=== PATIENT | male | born 1950 ===

== ENCOUNTER 2016-12-22 09:06 | Emergency (ER) | payer SELFPAY ==
[2016-12-22 09:22] VITALS: BP 158/90; PULSE 51; RESP 20; TEMP 98.2; O2SAT 98; BMI 21.8
--- NOTE | 2016-12-22 09:48 | C.PDOC ---
History Of Present Illness 66 yo male come in accompanied by family for evaluation of Left shoulder pain for 15 days. As per pt, pain is localized over superior aspect Left shoulder, non-radiating and worse with movement. Otherwise, pt and family denies recent known trauma or injury, fever, chills, headache, dizziness, CP, SOB, dyspnea, palpitation, diaphoresis, denies weakness, sensory or vascular deficits to left hand. Ambulate to Ed for evaluation, not in any apparent distress. Time Seen by Provider: 12/22/16 09:24 Chief Complaint (Nursing): Upper Extremity Problem/Injury History Per: Patient, Family History/Exam Limitations: no limitations Onset/Duration Of Symptoms: Days (15) Current Symptoms Are (Timing): Still Present Past Medical History Reviewed: Historical Data, Nursing Documentation, Vital Signs Vital Signs: Last Vital Signs Temp 98.2 F 12/22/16 09:22 Pulse 51 L 12/22/16 09:22 Resp 20 12/22/16 09:22 BP 158/90 H 12/22/16 09:22 Pulse Ox 98 12/22/16 10:11 - Medical History PMH: HTN Family History: States: No Known Family Hx - Social History Hx Alcohol Use: No Hx Substance Use: No - Immunization History Hx Tetanus Toxoid Vaccination: No Hx Influenza Vaccination: No Hx Pneumococcal Vaccination: No Review Of Systems Except As Marked, All Systems Reviewed And Found Negative. Constitutional: Negative for: Fever, Chills Cardiovascular: Negative for: Chest Pain, Palpitations Respiratory: Negative for: Shortness of Breath Musculoskeletal: Positive for: Shoulder Pain (Left shoulder ). Negative for: Hand Pain Neurological: Negative for: Weakness, Headache, Dizziness Physical Exam - Physical Exam Appears: Well, Non-toxic, No Acute Distress Skin: Normal Color, Warm, No Rash, No Ecchymosis Head: Normacephalic Throat: No Erythema, No Exudate, No Drooling Neck: Supple, Other ((-) carotid bruits) Chest: Symmetrical Cardiovascular: Rhythm Regular, No Friction Rub, No Murmur, No JVD Respiratory: No Decreased Breath Sounds, No Accessory Muscle Use, No Stridor, No Wheezing Extremity: Normal ROM (LUE), Tenderness (mild tenderness over superior aspect left shoulder with mild discomfort to left shoulder abduction. NO palpable deformity, no skin changes, no neurovascular deficits.), No Pedal Edema, Capillary Refill (less than 2sec to left hand), No Deformity, No Swelling Neurological/Psych: Oriented x3, Normal Speech, Normal Motor, Normal Sensation, Normal Reflexes ED Course And Treatment ECG: Interpreted By Me, Viewed By Me (and ED attending) ECG Rhythm: Sinus Rhythm (@51/min) Interpretation Of ECG: Sinus latisha@51/min, NAD, normal interval, no acute T wave or ST-T changes. Rate From EC (BPM) O2 Sat by Pulse Oximetry: 98 (RA ) Pulse Ox Interpretation: Normal - Other Rad X-Ray - Left Shoulder X-Ray: Viewed By Me Interpretation: mild DJD, no acute fx or dislocation Progress Note: On re-eval, pt is afebrile, hemodynamicaly stable. Non-toxic. PulsEOx 100% RA. neck: Supple, (-) carotid bruits. Lungs: CTA B/L, BS equal B/ L. CVS: (+)S1S2, reg. Left shoulder: exam c/w mild arthralgia. FAROM, no deformity, no skin changes. left shoulder xray: (-) acute abn, EKG review - normal study.Sling applied to left arm. Pt has clinical findings c/w left shoulder arthralgia. Pt advised. re.f to f/u with PMD, ortho in 2-3 days for re-evaluation. return to Ed if any worsening or new changes. Medical Decision Making Medical Decision Making: PLAN: * X-Ray - Left Shoulder * EKG * Tramadol PO Disposition Counseled Patient/Family Regarding: Diagnosis, Need For Followup, Rx Given - Disposition Referrals: [facility] [Outside] [facility] [Outside] [facility] [Outside] [facility] [Outside] Disposition: HOME/ ROUTINE Disposition Time: 10:20 Condition: STABLE Additional Instructions: Sling to left arm for 1-2 weeks light duty to left arm for 1-2 weeks take medication as prescribed Follow up with PMD, Orthopedist in 2-3 days for re-evaluation. Return to ED if any worsening or new changes. Prescriptions: Famotidine [Pepcid] 20 mg PO BID #20 tab Ibuprofen [Motrin Tab] 600 mg PO TID #20 tab traMADol [Ultram] 50 mg PO TID #10 tab Instructions: Shoulder Pain (ED) Forms: [employer] (Slovenian) Print Language: CHADIAN - Clinical Impression Clinical Impression: Shoulder arthralgia - PA / CONSOLE MANAGER / Resident Statement MD/DO has reviewed & agrees with the documentation as recorded. - Scribe Statement The provider has reviewed the documentation as recorded by the Scribe Melissa Parish All medical record entries made by the Saniaibarlen were at my direction and personally dictated by me. I have reviewed the chart and agree that the record accurately reflects my personal performance of the history, physical exam, medical decision making, and the department course for this patient. I have also personally directed, reviewed, and agree with the discharge instructions and disposition.
--- NOTE | 2016-12-22 12:47 | RAD ---
PROCEDURE: Radiographs of the Left Shoulder HISTORY: Pain. No history of recent/ related trauma provided COMPARISON: No prior. FINDINGS: BONES: Normal. No fracture. JOINTS: Normal. Glenohumeral and acromioclavicular joints preserved. No osteoarthritis. SOFT TISSUES: Normal. OTHER FINDINGS: None. IMPRESSION: No significant or acute findings to account for/ related to the clinical presentation. No preliminary report provided by emergency department personnel.
--- NOTE | 2016-12-23 20:54 | CARD ---
APPROVED REPORT EKG Measurement Heart [id number] ID [id number] <Conclusion> Sinus bradycardia Otherwise normal ECG
== END 2016-12-22 10:45 | disposition home or self-care (01) ==
LOC: C.ER 09:06
DX: M25.512 Pain in left shoulder (principal)

== ENCOUNTER 2017-01-23 20:32 | Emergency (ER) | payer OTHER ==
[2017-01-23 20:32] VITALS: BMI 22.1
[2017-01-23 20:49] VITALS: TEMP 98.7
[2017-01-23 22:03] VITALS: RESP 16
--- NOTE | 2017-01-23 23:04 | C.PDOC ---
History Of Present Illness Pt c/o left shoulder area pain. Denies trauma. Time Seen by Provider: 01/23/17 21:28 Chief Complaint (Nursing): Upper Extremity Problem/Injury History Per: Patient, Family Onset/Duration Of Symptoms: Days (about 1 week) Current Symptoms Are (Timing): Still Present Quality: "Pain" Severity: Moderate Exacerbating Factor(s): Strenuous Use Of Affected Area, Movement Additional History Per: Prior Records Past Medical History Reviewed: Historical Data, Nursing Documentation, Vital Signs Vital Signs: Last Vital Signs Temp 98.7 F 01/23/17 20:48 Pulse 86 01/23/17 22:01 Resp 16 01/23/17 22:01 BP 125/79 01/23/17 22:01 Pulse Ox 96 01/23/17 22:01 - Medical History PMH: HTN Surgical History: No Surg Hx Family History: States: Unknown Family Hx - Social History Hx Alcohol Use: No Hx Substance Use: No - Immunization History Hx Tetanus Toxoid Vaccination: No Hx Influenza Vaccination: No Hx Pneumococcal Vaccination: No Review Of Systems Except As Marked, All Systems Reviewed And Found Negative. Constitutional: Negative for: Fever, Weakness Cardiovascular: Negative for: Chest Pain Respiratory: Negative for: Shortness of Breath, Hemoptysis Gastrointestinal: Negative for: Nausea, Vomiting, Abdominal Pain Musculoskeletal: Positive for: Neck Pain. Negative for: Back Pain Skin: Negative for: Rash Neurological: Negative for: Weakness, Numbness, Incoordination, Change in Speech , Confusion, Seizures, Altered Mental Status, Headache, Dizziness Physical Exam - Physical Exam Appears: Non-toxic, No Acute Distress Skin: Normal Color, Warm, Dry, No Rash Head: Atraumatic, Normacephalic Eye(s): bilateral: PERRL, EOMI Neck: Normal ROM, No Midline Cervical Tenderness, Paracervical Tenderness, No Step Off Deformity, Supple Chest: Symmetrical, No Deformity, No Tenderness Cardiovascular: Rhythm Regular Respiratory: Normal Breath Sounds, No Accessory Muscle Use Gastrointestinal/Abdominal: Soft, No Tenderness Back: No CVA Tenderness, No Vertebral Tenderness Extremity: Tenderness (mild, left shoulder), Capillary Refill (wnl), No Deformity, No Swelling Extremity: Bilateral: Normal Color And Temperature Pulses: Left Radial: Normal Neurological/Psych: Oriented x3, Normal Motor, Normal Sensation ED Course And Treatment ECG: Interpreted By Me, Viewed By Me ECG Rhythm: Sinus Rhythm ECG Interpretation: No Acute Changes Rate From EC O2 Sat by Pulse Oximetry: 96 Pulse Ox Interpretation: Normal Reassessment Condition: Improved Disposition Counseled Patient/Family Regarding: Studies Performed, Diagnosis, Need For Followup, Rx Given - Disposition Referrals: Deborah Florentino MD [Primary Care Provider] - Disposition: HOME/ ROUTINE Disposition Time: 23:05 Condition: IMPROVED Additional Instructions: Follow up with your doctor for further evaluation and treatment. Return to the ER if you develop weakness, numbness, chest pain, shortness of breath, worsening of symptoms or if you have any other concerns. Prescriptions: traMADol/Acetaminophen [Ultracet 325 MG-37.5 MG] 1 tab PO Q4 PRN #30 tab PRN Reason: Pain Instructions: Shoulder Pain (ED) Forms: [email or web address] (Beninese) Print Language: AZERI - Clinical Impression Clinical Impression: Left shoulder pain, Posterior neck pain
[2017-01-23 23:20] VITALS: BP 101/59; PULSE 79; O2SAT 100
--- NOTE | 2017-01-26 10:23 | CARD ---
APPROVED REPORT EKG Measurement Heart [id number] <Conclusion> Normal sinus rhythm Normal ECG
== END 2017-01-23 23:20 | disposition home or self-care (01) ==
LOC: SUPCPDRO 20:32 → C.ER 20:32
DX: M25.512 Pain in left shoulder (principal); M54.2 Cervicalgia
CPT/HCPCS: 84484; 93005; 96374; 99284; J1885

== ENCOUNTER 2018-08-05 20:06 | Emergency (ER) | payer OTHER ==
[2018-08-05 20:07] VITALS: BMI 22.1
[2018-08-05] MEDS ORDERED: Iohexol 240 (50 ml) PO STA (20:59)
[2018-08-05 21:19] LABS: BASO # 0.1 K/uL (0.0-0.2); BASO % 1.3 % (0.0-2.0); EOS # 0.4 K/uL (0.0-0.7); EOS % 6.5 % (0.0-4.0); HEMOGLOBIN 13.3 g/dL (12.0-18.0); LYMPH # 2.1 K/uL (1.0-4.3); LYMPH % 31.4 % (20.0-40.0); MEAN CELL VOLUME 89.7 fL (80.0-94.0); MEAN CORPUSCULAR HEMOGLOBIN 30.3 pg (27.0-31.0); MEAN CORPUSCULAR HGB CONC 33.7 g/dL (33.0-37.0); MEAN PLATELET VOLUME 7.4 fL (7.2-11.7); MONO # 0.6 K/uL (0.0-0.8); MONO % 8.9 % (0.0-10.0); NEUT # 3.5 K/uL (1.8-7.0); NEUT % 51.9 % (50.0-75.0); RBC 4.41 Mil/uL (4.40-5.90); RED CELL DISTRIBUTION WIDTH 14.5 % (11.5-14.5); WHITE BLOOD COUNT 6.8 K/uL (4.8-10.8)
[2018-08-05] MEDS ORDERED: Iohexol 240 (50 ml) ONE (21:21)
[2018-08-05 21:25] LABS: SQUAMOUS EPITHIAL < 1 /hpf (0-5); URINE BILIRUBIN NEGATIVE (NEGATIVE); URINE BLOOD NEGATIVE (NEGATIVE); URINE CLARITY Clear (Clear); URINE COLOR Yellow (YELLOW); URINE GLUCOSE (UA) NORMAL (Normal); URINE LEUKOCYTE ESTERASE NEG Leu/uL (Negative); URINE PROTEIN NEGATIVE (NEGATIVE); URINE UROBILINOGEN NORMAL mg/dL (0.2-1.0)
[2018-08-05 21:27] LABS: VENOUS BLOOD GAS BASE EXCESS 1.9 mmol/L (0.0-2.0); VENOUS BLOOD GAS PCO2 50 mmHg (40-60); VENOUS BLOOD GAS PO2 35 mm/Hg (30-55); VENOUS BLOOD PH 7.36 (7.32-7.43)
[2018-08-05 21:34] LABS: ALB/GLOB RATIO 1.5 (1.0-2.1); ALBUMIN 4.1 g/dL (3.5-5.0); ALT/SGPT 24 U/L (21-72); AST/SGOT 36 U/L (17-59); BLOOD UREA NITROGEN 27 mg/dL (9-20); CALCIUM 9.3 mg/dl (8.6-10.4); GFR NON-AFRICAN AMERICAN 55; LIPASE 182 U/L (23-300)
[2018-08-05] MEDS ORDERED: Iodixanol 320 MG/ML 100 ML BOTTLE IV ONE (22:13)
--- NOTE | 2018-08-05 23:21 | C.PDOC ---
History Of Present Illness 68 year old male presents to the ED c/o LUQ pain and bulging mass in the area. Patient noticed that today when going from sitting top standing he felt sudden pain in the area. Patient reports he never had pain or the bulge before. Patient denies fever, chills, nausea, vomit, diarrhea, rash, back pain. Time Seen by Provider: 08/05/18 20:18 Chief Complaint (Nursing): Abdominal Pain History Per: Patient History/Exam Limitations: no limitations Onset/Duration Of Symptoms: Hrs Current Symptoms Are (Timing): Still Present Location Of Pain/Discomfort: LUQ Radiation Of Pain To:: None Quality Of Discomfort: "Pain" Associated Symptoms: denies: Nausea, Vomiting, Diarrhea, Urinary Symptoms Exacerbating Factors: Upright Position Recent travel outside of the [place]: No Additional History Per: Patient Past Medical History Reviewed: Historical Data, Nursing Documentation, Vital Signs Vital Signs: Last Vital Signs Temp 97.6 F 08/05/18 20:21 Pulse 65 08/05/18 20:21 Resp 20 08/05/18 20:21 BP 128/76 08/05/18 20:21 Pulse Ox 97 08/05/18 20:21 - Medical History PMH: HTN Denies: Chronic Kidney Disease Surgical History: No Surg Hx Family History: States: Unknown Family Hx - Social History Hx Alcohol Use: No Hx Substance Use: No - Immunization History Hx Tetanus Toxoid Vaccination: No Hx Influenza Vaccination: No Hx Pneumococcal Vaccination: No Review Of Systems Constitutional: Negative for: Fever, Chills Cardiovascular: Negative for: Chest Pain Respiratory: Negative for: Shortness of Breath Gastrointestinal: Positive for: Abdominal Pain. Negative for: Nausea, Vomiting Musculoskeletal: Negative for: Back Pain Skin: Negative for: Rash Neurological: Negative for: Weakness, Numbness Physical Exam - Physical Exam Appears: Non-toxic, No Acute Distress Skin: Normal Color, Warm, Dry Head: Atraumatic, Normacephalic Eye(s): bilateral: Normal Inspection Oral Mucosa: Moist Neck: Normal ROM, Supple Chest: Symmetrical Cardiovascular: Rhythm Regular Respiratory: Normal Breath Sounds, No Rales, No Rhonchi, No Wheezing Gastrointestinal/Abdominal: Soft, Tenderness (LUQ), No Guarding, No Rebound, Hernia (reducible hernia, tender to palpation), Other (Negative McBurney's and [place]) Back: No CVA Tenderness Extremity: Normal ROM, No Tenderness, No Swelling Neurological/Psych: Oriented x3, Normal Speech, Normal Cognition Gait: Steady ED Course And Treatment - Laboratory Results Result Diagrams: 08/05/18 21:12 08/05/18 21:12 Lab Results: pO2 35 mm/Hg (30-55) 08/05/18 21:24 VBG pH 7.36 (7.32-7.43) 08/05/18 21:24 VBG pCO2 50 mmHg (40-60) 08/05/18 21:24 VBG HCO3 25.5 mmol/L 08/05/18 21:24 VBG Total CO2 29.7 mmol/L (22-28) H 08/05/18 21:24 VBG O2 Sat (Calc) 68.0 % (40-65) H 08/05/18 21:24 VBG Base Excess 1.9 mmol/L (0.0-2.0) 08/05/18 21:24 VBG Potassium 4.2 mmol/L (3.6-5.2) 08/05/18 21:24 Sodium 139.0 mmol/l (132-148) 08/05/18 21:24 Chloride 105.0 mmol/L (98-107) 08/05/18 21:24 Glucose 117 mg/dl (75-110) H 08/05/18 21:24 Lactate 1.3 mmol/L (0.7-2.1) 08/05/18 21:24 Total Bilirubin 0.6 mg/dL (0.2-1.3) 08/05/18 21:12 AST 36 U/L (17-59) 08/05/18 21:12 ALT 24 U/L (21-72) 08/05/18 21:12 Alkaline Phosphatase 105 U/L (38-126) 08/05/18 21:12 Total Protein 6.9 g/dL (6.3-8.3) 08/05/18 21:12 Albumin 4.1 g/dL (3.5-5.0) 08/05/18 21:12 Globulin 2.7 gm/dL (2.2-3.9) 08/05/18 21:12 Albumin/Globulin Ratio 1.5 (1.0-2.1) 08/05/18 21:12 Lipase 182 U/L (23-300) 08/05/18 21:12 Urine Color Yellow (YELLOW) 08/05/18 21:12 Urine Clarity Clear (Clear) 08/05/18 21:12 Urine pH 5.0 (5.0-8.0) 08/05/18 21:12 Ur Specific [place] 1.013 (1.003-1.030) 08/05/18 21:12 Urine Protein Negative mg/dL (NEGATIVE) 08/05/18 21:12 Urine Glucose (UA) Normal mg/dL (Normal) 08/05/18 21:12 Urine Ketones Negative mg/dL (NEGATIVE) 08/05/18 21:12 Urine Blood Negative (NEGATIVE) 08/05/18 21:12 Urine Nitrate Negative (NEGATIVE) 08/05/18 21:12 Urine Bilirubin Negative (NEGATIVE) 08/05/18 21:12 Urine Urobilinogen Normal mg/dL (0.2-1.0) 08/05/18 21:12 Ur Leukocyte Esterase Neg [place]/uL (Negative) 08/05/18 21:12 Urine WBC (Auto) < 1 /hpf (0-5) 08/05/18 21:12 Urine RBC (Auto) 1 /hpf (0-3) 08/05/18 21:12 Ur Squamous Epith Cells < 1 /hpf (0-5) 08/05/18 21:12 O2 Sat by Pulse Oximetry: 97 (ON RA) Pulse Ox Interpretation: Normal - CT Scan/US CT abd/pelvis Other Rad Studies (CT/US): Read By Radiologist, Radiology Report Reviewed CT/US Interpretation: EXAM: CT Abdomen and Pelvis with IV contrast. CLINICAL HISTORY: 1 day of pain and swelling LUQ region/mid [address] over area. No nausea or vomiting. TECHNIQUE: Axial computed tomography images of the abdomen and pelvis with intravenous contrast. 0.00 mGy-cm. CONTRAST: With; OMNI 240 & VISI 320 100MLS. COMPARISON: None provided. FINDINGS: LUNG BASES: Mild atelectasis near the lung bases. The visualized heart is mildly to moderately enlarged. Calcified granuloma at the right lung base. LIVER: Unrem arkable. GALLBLADDER AND BILE DUCTS: The gallbladder appears within normal limits. No radioopaque gallstones are seen. No biliary ductal dilatation is evident. PANCREAS: The pancreatic duct is borderline prominent near the pancreatic head. Please correlate clinically and if indicated this could be further evaluated with MRCP or ERCP. SPLEEN: Unremarkable. ADRENAL GLANDS: Unremarkable. KIDNEYS, URETERS, AND BLADDER: The kidneys appear within normal limits. There is no hydronephrosis or hydroureter. No urinary calculi are seen. STOMACH AND BOWEL: There is constipation in the colon, including in the left upper quadrant at the area marked by the bbs. No evidence for bowel obstruction or inflammation identified. APPENDIX: No evidence for appendicitis. PERITONEUM: No ascites or pneumoperitoneum. LYMPH NODES: There are some borderline size retroperitoneal nodes without madison lymphadenopathy. REPRODUCTIVE: Prostate is enlarged measuring 4.8 cm transverse. VASCULATURE: The abdominal aorta is moderately atherosclerotic. Additionally, there is mild infrarenal abdominal aortic aneurysm measuring 2.7 x 3.0 cm near series 2, image 42. Mild prominence of the left common iliac artery measuring up to 1.6 cm. BONES: Mild to moderate multilevel degenerative spine changes. IMPRESSION: 1. The visualized heart is mildly to moderately enlarged. 2. The pancreatic duct is borderline prominent near the pancreatic head. Please correlate clinically and if indicated this could be further evaluated with MRCP or ERCP. 3. There is constipation in the colon, including in the left upper quadrant at the area marked by the bbs. 4. No evidence for bowel obstruction or inflammation identified. 5. The abdominal aorta is moderately atherosclerotic. Additionally, there is mild infrarenal abdominal aortic aneurysm measuring 2.7 x 3.0 cm near series 2, image 42. 6. There are some borderline size retroperitoneal nodes without mad[place] lymphadenopathy. 7. Prostate is enlarged measuring 4.8 cm transverse. 8. Additional and incidental findings as described. . Electronically signed on Aug 06, 2018 12:58:02 AM EDT by: Kristen Sánchez M.D., Certified by ABR, MSK, Neuroradiology. Progress Note: Plan: - VBG. - CT abd/pelvis. - Labs. - UA Disposition Counseled Patient/Family Regarding: Studies Performed, Diagnosis, Need For Followup, Rx Given - Disposition Referrals: Tian Zhao MD [Staff Provider] - Jamir Romo Jr., MD [Staff Provider] - Disposition: HOME/ ROUTINE Disposition Time: 01:00 Condition: STABLE Additional Instructions: FOLLOW UP WITH GENERAL SURGEON WITHIN 1 WEEK AND WITH VASCULAR SURGEON WITHIN 1 WEEK USE MEDICATION DAILY INCREASE FIBER IN YOUR DIET RETURN TO EMERGENCY ROOM IF YOUR SYMPTOMS BECOME WORSE SEGUIRSE CON EL CIRUJANO GENERAL EN VINCENZO SEMANA Y CON EL CIRUJANO VASCULAR EN VINCENZO SEMANA USAR MEDICAMENTOS DIARIAMENTE AUMENTA LA FIBRA EN TU DIETA VUELVA A LA JEN DE EMERGENCIA SI LA SNTOMAS SE HACEN PEOR Prescriptions: Docusate [Colace] 100 mg PO DAILY #30 cap Instructions: Abdominal Aortic Aneurysm, Abdominal Hernia (DC) Forms: Dr. Z (French) - Clinical Impression Clinical Impression: Constipation, Aneurysm of infrarenal abdominal aorta, Abdominal hernia - Scribe Statement The provider has reviewed the documentation as recorded by the Scribe Darrius Garza All medical record entries made by the Scribe were at my direction and personal ly dictated by me. I have reviewed the chart and agree that the record accurately reflects my personal performance of the history, physical exam, medical decision making, and the department course for this patient. I have also personally directed, reviewed, and agree with the discharge instructions and disposition.
[2018-08-06 01:25] VITALS: BP 135/79; PULSE 99; RESP 19; TEMP 98.4; O2SAT 95
--- NOTE | 2018-08-06 09:36 | CT ---
Date of service: 08/05/2018 PROCEDURE: CT Abdomen and Pelvis with contrast HISTORY: LUQ PAIN, HERNIA, R/O INCARCERATION COMPARISON: None available. TECHNIQUE: CT scan of the abdomen and pelvis was performed after administration of intravenous contrast. Oral contrast was administered. Coronal and sagittal reformatted images were obtained. Contrast dose: 100 mL Visipaque 320 Radiation dose: Total exam DLP = 275.68 mGy-cm. This CT exam was performed using one or more of the following dose reduction techniques: Automated exposure control, adjustment of the mA and/or kV according to patient size, and/or use of iterative reconstruction technique. FINDINGS: LOWER THORAX: There are multiple scattered calcified nodules in the visualized lungs, the largest in the right anterior lateral lung base measures 6 mm. LIVER: Normal in size with homogeneous enhancement. No gross lesion or ductal dilatation. GALLBLADDER AND BILE DUCTS: Well distended. No calcified gallstones, wall thickening or pericholecystic fluid. PANCREAS: Normal in size with homogeneous enhancement. No gross lesion or ductal dilatation. SPLEEN: Normal in size and appearance. There is a tiny nonspecific calcification in the posterior spleen. ADRENALS: No discrete nodule. KIDNEYS AND URETERS: Normal in size with homogeneous enhancement. No hydronephrosis. No solid mass. VASCULATURE: There is ectasia of the infrarenal aorta and aortic calcifications with mild mural plaques. Both common iliac arteries are tortuous. BOWEL: The small bowel loops are normal in caliber. There is large amount of stool in the colon. There is gaseous distension of redundant sigmoid colon. No bowel wall thickening or obstruction. APPENDIX: Normal appendix. PERITONEUM: No free fluid. No free air. LYMPH NODES: No enlarged lymph nodes. BLADDER: Well distended and normal in appearance. REPRODUCTIVE: There is mild enlargement of the prostate gland. BONES: No acute fracture. Multilevel degenerative disc disease with vacuum discs in the lower lumbar spine. OTHER FINDINGS: None. IMPRESSION: No acute abdominal or pelvic abnormality. Constipation. No evidence for bowel obstruction. Mild enlargement of the prostate gland. Please correlate with PSA levels. A preliminary report was provided by [employer].
== END 2018-08-06 01:26 | disposition home or self-care (01) ==
LOC: C.ER 20:06
DX: K59.00 Constipation, unspecified (principal); I71.4 Abdominal aortic aneurysm, without rupture; K46.9 Unspecified abdominal hernia without obstruction or gangrene
CPT/HCPCS: 74177; 80053; 81001; 82803; 83690; 85025; 99284; Q9966; Q9967

== ENCOUNTER 2018-08-17 13:24 | Emergency (ER) | payer OTHER ==
[2018-08-17 13:24] VITALS: BMI 22.1
[2018-08-17 13:40] VITALS: BP 126/72; PULSE 70; RESP 20; TEMP 98.1; O2SAT 100
--- NOTE | 2018-08-17 15:50 | C.PDOC ---
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 Patient states that he tripped and fell. Patient denies weakness and numbness. Time Seen by Provider: 08/17/18 13:47 Chief Complaint (Nursing): Lower Extremity Problem/Injury History Per: Patient History/Exam Limitations: no limitations Onset/Duration Of Symptoms: Hrs (1) Current Symptoms Are (Timing): Still Present - Ankle/Foot Description Of Injury: Fell Past Medical History Reviewed: Historical Data, Nursing Documentation, Vital Signs Vital Signs: Last Vital Signs Temp 98.1 F 08/17/18 13:35 Pulse 70 08/17/18 13:35 Resp 20 08/17/18 13:35 BP 126/72 08/17/18 13:35 Pulse Ox 100 08/17/18 13:35 - Medical History PMH: HTN Denies: Chronic Kidney Disease Surgical History: No Surg Hx Family History: States: Unknown Family Hx - Social History Hx Alcohol Use: No Hx Substance Use: No - Immunization History Hx Tetanus Toxoid Vaccination: No Hx Influenza Vaccination: No Hx Pneumococcal Vaccination: No Review Of Systems Constitutional: Negative for: Fever, Chills, Weakness Musculoskeletal: Positive for: Leg Pain (left knee pain ) Neurological: Negative for: Weakness, Numbness Physical Exam - Physical Exam Appears: Well, Non-toxic, No Acute Distress Skin: Normal Color, Warm, Dry Head: Atraumatic, Normacephalic Neck: Normal ROM, Supple Chest: Symmetrical, No Deformity Cardiovascular: Rhythm Regular, No Murmur Respiratory: No Accessory Muscle Use, No Rales, No Rhonchi, No Wheezing Gastrointestinal/Abdominal: Soft, No Tenderness Extremity: No Normal ROM (decreased ROM secondary to pain), No Deformity, Swelling (lateral side of the right knee) Pulses: Left Dorsalis Pedis: Normal, Right Dorsalis Pedis: Normal Neurological/Psych: Oriented x3, Normal Speech, Normal Cognition ED Course And Treatment O2 Sat by Pulse Oximetry: 100 (in RA) - Other Rad Right Knee X-ray X-Ray: Interpreted by Me, Viewed By Me Interpretation: Accession No. : [id number]. Patient Name / ID : MEGAN BROWN / [id number]. Exam Date : 08/17/2018 13:52:29 ( Approved ). Study Comment : Sex / Age : M / 68Y. Creator : Dimitri Flor MD. Dictator : Dimitri Flor MD. Bill Recapitulation Clerk : Analytics Director : Dimitri Flor MD. Approver2 : Report Date : 08/17/2018 17:27:27. My Comment : . Date of service: 08/17/2018. PROCEDURE: Right Knee Radiographs. HISTORY: fall. COMPARISON: None. TECHNIQUE: 2 views obtained. FINDINGS: BONES: Normal. No fracture. JOINTS: Normal. No osteoarthritis. JOINT EFFUSION: None. OTHER FINDINGS: None. IMPRESSION: No acute findings related to/ accounting for the clinical presentation. Progress Note: Right knee x-ray ordered for patient. Patient given Motrin PO. Knee immobilizer applied. Patient given a walker and training with PT. Re- evaluation. Patient feels better. Discussed results and plan with patient who expresses understanding. All questions answered and there is agreement with the plan to discharge home with instructions. Patient stable for discharge. Return if symptoms persist or worsen. Disposition - Disposition Referrals: Alfred Philip MD [Staff Provider] - Disposition: HOME/ ROUTINE Disposition Time: 15:47 Condition: STABLE Additional Instructions: Follow up with PMD and Orthopedist within 1-2 days. Return to ED if feel worse. 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 (Joselin Feliz) - Scribe Statement The provider has reviewed the documentation as recorded by the Scribe (Joselin Feliz) All medical record entries made by the Scribe were at my direction and personally dictated by me. I have reviewed the chart and agree that the record accurately reflects my personal performance of the history, physical exam, medical decision making, and the department course for this patient. I have also personally directed, reviewed, and agree with the discharge instructions and disposition.
--- NOTE | 2018-08-17 17:31 | RAD ---
Date of service: 08/17/2018 PROCEDURE: Right Knee Radiographs. HISTORY: fall COMPARISON: None. TECHNIQUE: 2 views obtained. FINDINGS: BONES: Normal. No fracture. JOINTS: Normal. No osteoarthritis. JOINT EFFUSION: None. OTHER FINDINGS: None. IMPRESSION: No acute findings related to/ accounting for the clinical presentation.
== END 2018-08-17 16:19 | disposition home or self-care (01) ==
LOC: C.ER 13:24
DX: S83.91XA Sprain of unspecified site of right knee, initial encounter (principal); W01.0XXA Fall on same level from slipping, tripping and stumbling without subsequent striking against object, initial encounter; Y92.009 Unspecified place in unspecified non-institutional (private) residence as the place of occurrence of the external cause
CPT/HCPCS: 73562; 97116; 97161; 99284; G8978; G8979; G8980

== ENCOUNTER 2018-09-04 07:46 | Outpatient (CLI) | payer OTHER | END 2018-09-04 07:47 | disposition home or self-care (01) | LOC: C.USIC 07:46 ==